=== PATIENT | female | born 1940 | race Caucasian/White ===

== ENCOUNTER → 2016-08-07 | Outpatient (CLI) | payer OTHER | LOC: FIMAGING 09:12 | PROVIDERS: ATTEND Internal Medicine Hematology & Oncology | DX: Z12.39 Encounter for other screening for malignant neoplasm of breast (principal); N64.4 Mastodynia; Z85.3 Personal history of malignant neoplasm of breast | CPT/HCPCS: 76641; G0204 ==

== ENCOUNTER 2017-02-13 10:03 | Inpatient (IN) | payer OTHER ==
--- NOTE | 2017-02-13 10:15 | EDPHY ---
H & P Stated Complaint: Feels weak after taking 2 extra BP meds Time Seen by Provider: 02/13/17 10:15 HPI/ROS: CHIEF COMPLAINT: Generalized weakness HISTORY OF PRESENT ILLNESS: The patient presents to the ED with 4 days of generalized weakness and lethargy. The patient reportedly developed the symptoms after taking additional blood pressure medications for a transiently elevated systolic blood pressure. The patient reportedly has been off of her blood pressure medications for the past 4 days. She has been unable to get off her couch secondary to weakness. She has continued to make a small amount of urine. She denies fever, cough or congestion. She denies dysuria. REVIEW OF SYSTEMS: A comprehensive 10 point review of systems is otherwise negative aside from elements mentioned in the history of present illness. Source: Patient - Personal History Current Tetanus Diphtheria and Acellular Pertussis (TDAP): Yes Tetanus Vaccine Date: < 10 YEARS - Medical/Surgical History Hx Asthma: No Hx Chronic Respiratory Disease: No Hx Diabetes: No Hx Cardiac Disease: No Hx Renal Disease: Yes Hx Cirrhosis: No Hx Alcoholism: No Hx HIV/AIDS: No Hx Splenectomy or Spleen Trauma: No Other PMH: DEPRESSION, HTN, HYPOTHYROID - Social History Smoking Status: Former smoker - Physical Exam Exam: General Appearance: Alert, no distress Eyes: Pupils equal and round no pallor or injection ENT, Mouth: Dry mucous membranes Respiratory: There are no retractions, lungs are clear to auscultation Cardiovascular: Regular rate and rhythm Gastrointestinal: Abdomen is soft and nontender, no masses, bowel sounds normal Neurological: A&O, normal motor function, normal sensory exam, normal cranial nerves Skin: Warm and dry, no rashes Musculoskeletal: Neck is supple nontender Extremities: symmetrical, full range of motion Constitutional: Initial Vital Signs Temperature (C) 36.6 C 02/13/17 10:04 Heart Rate 68 02/13/17 10:04 Respiratory Rate 16 02/13/17 10:04 Blood Pressure 75/50 L 02/13/17 10:04 O2 Sat (%) 94 02/13/17 10:04 O2 Delivery Mode Room Air Allergies/Adverse Reactions: alprazolam [From Xanax] Allergy (Severe, Verified 02/13/17 10:04) SYNCOPE/HYPOTENSION doxycycline [Doxycycline] Allergy (Mild, Verified 02/13/17 10:04) Rash erythromycin base [Erythromycin Base] Allergy (Mild, Verified 02/13/17 10:04) NAUSEA Penicillins Allergy (Mild, Verified 02/13/17 10:04) Rash Sulfa (Sulfonamide Antibiotics) Allergy (Mild, Verified 02/13/17 10:04) Vomiting sulfamethoxazole [From Septra] Allergy (Mild, Verified 02/13/17 10:04) Vomiting trimethoprim [From Septra] Allergy (Mild, Verified 02/13/17 10:04) NAUSEA Wheat Containing *RETIRED-02/03/12 [Wheat Containing Prod] Allergy (Mild, Verified 02/13/17 10:04) Rash cephalexin monohydrate [From Keflex] Allergy (Unknown, Verified 02/13/17 10:04) Unknown chloroquine [Chloroquine] Allergy (Unknown, Verified 02/13/17 10:04) Unknown oxycodone HCl [From Percocet] Allergy (Unknown, Verified 02/13/17 10:04) NAUSEA propoxyphene napsylate [From Darvocet-N 100] Allergy (Unknown, Verified 10:04) Unknown Home Medications: Medication Instructions Recorded Aspirin [Aspirin 325 mg (*)] 650 mg PO DAILY PRN 02/13/17 DULoxetine [Cymbalta 30 MG (*)] 30 mg PO DAILY 02/13/17 Herbals/Supplements -Info Only 1 ea PO DAILY 02/13/17 Levothyroxine [Synthroid 75 mcg 75 mcg PO DAILY06 02/13/17 (*)] Liothyronine Sodium [Cytomel 25 25 mcg PO DAILY 02/13/17 mcg (*)] Valsartan [Diovan (*)] 80 mg PO DAILY 02/13/17 buPROPion SR [Wellbutrin 150mg SR 150 mg PO DAILY 02/13/17 (*)] Medical Decision Making - Diagnostics EKG Interpretation: EKG: Complete interpretation has been separately recorded in the [email or web address] archive. Summary impression: Sinus rhythm, PACs, nonspecific ST T wave changes noted ED Course/Re-evaluation: The patient presents to the ED with transient hypotension, global weakness and acute renal failure. The patient's symptoms began after taking her antihypertensive medications at doses greater than typically prescribed. This precipitated a several day episode of generalized weakness. The patient does have a history of chronic renal failure. She is not on dialysis. The patient denies any history of fever, cough, congestion or acute diarrhea. The patient was noted to be hypotensive upon arrival. She had an IV established. She received 2 L of normal saline. Her blood pressure rapidly improved. The patient is noted to be afebrile. Her laboratory studies do demonstrate acute on chronic renal failure with a creatinine of 2.9. The patient's EKG demonstrates no evidence of ischemia or arrhythmia. She was placed on a athletic monitor. The patient will require admission to the hospital for further evaluation of her dehydration and acute renal failure. The patient has no evidence of fever or acute infection in the emergency department. Differential Diagnosis: Differential diagnosis considered includes acute renal failure, hyperkalemia, metabolic abnormality, dehydration, arrhythmia - Data Points Laboratory Results: Laboratory Results 02/13/17 10:30 02/13/17 10:30 02/13/17 02/13/17 02/13/17 10:30 10:30 10:30 WBC 14.52 10^3/uL H 10^3/uL (3.80-9.50) RBC 4.92 10^6/uL 10^6/uL (4.18-5.33) Hgb 15.0 g/dL g/dL (12.6-16.3) POC Hgb 17.0 gm/dL H gm/dL (12.6-16.3) Hct 45.0 % % (38.0-47.0) POC Hct 50 % H % (38-47) MCV 91.5 fL fL (81.5-99.8) MCH 30.5 pg pg (27.9-34.1) MCHC 33.3 g/dL g/dL (32.4-36.7) RDW 12.8 % % (11.5-15.2) Plt Count 280 10^3/uL 10^3/uL (150-400) MPV 9.3 fL fL (8.7-11.7) Neut % (Auto) 80.0 % H % (39.3-74.2) Lymph % (Auto) 11.9 % L % (15.0-45.0) [place] % (Auto) 6.2 % % (4.5-13.0) Eos % (Auto) 1.2 % % (0.6-7.6) Baso % (Auto) 0.3 % % (0.3-1.7) Nucleat RBC Rel Count 0.0 % % (0.0-0.2) Absolute Neuts (auto) 11.61 10^3/uL H 10^3/uL (1.70-6.50) Absolute Lymphs (auto) 1.73 10^3/uL 10^3/uL (1.00-3.00) Absolute Monos (auto) 0.90 10^3/uL H 10^3/uL (0.30-0.80) Absolute Eos (auto) 0.18 10^3/uL 10^3/uL (0.03-0.40) Absolute Basos (auto) 0.04 10^3/uL 10^3/uL (0.02-0.10) Absolute Nucleated RBC 0.00 10^3/uL 10^3/uL (0-0.01) Immature Gran % 0.4 % % (0.0-1.1) Immature Gran # 0.06 10^3/uL 10^3/uL (0.00-0.10) POC Sodium 136 mEq/L mEq/L (134-144) Sodium 135 mEq/L mEq/L (134-144) POC Potassium 3.6 mEq/L mEq/L (3.3-5.0) Potassium 3.9 mEq/L mEq/L (3.5-5.2) POC Chloride 98 mEq/L mEq/L (97-110) Chloride 97 mEq/L mEq/L (97-110) Carbon Dioxide 20 mEq/l L mEq/l (22-31) Anion Gap 18 mEq/L H mEq/L (8-16) POC BUN 40 mg/dL H mg/dL (7-23) BUN 38 mg/dL H mg/dL (7-23) Creatinine 2.7 mg/dL H mg/dL (0.6-1.0) POC Creatinine 2.9 mg/dL H mg/dL (0.6-1.0) Estimated GFR 17 Glucose 127 mg/dL H mg/dL (70-100) POC Glucose 130 mg/dL H mg/dL (70-100) Calcium 9.1 mg/dL mg/dL (8.5-10.4) Medications Given: Discontinued Medications Sodium Chloride (Ns) 1,000 mls @ 0 mls/hr IV EDNOW ONE; Wide Open PRN Reason: Protocol Stop: 02/13/17 10:22 Last Admin: 02/13/17 10:29 Dose: 1,000 mls Sodium Chloride (Ns) 1,000 mls @ 0 mls/hr IV EDNOW ONE; Wide Open PRN Reason: Protocol Stop: 02/13/17 10:59 Last Admin: 02/13/17 11:43 Dose: 1,000 mls Point of Care Test Results: 02/13/17 10:30 POC Sodium 136 POC Potassium 3.6 POC Chloride 98 POC BUN 40 H POC Creatinine 2.9 H POC Glucose 130 H Departure - [facility] Clinical Impression: Acute renal failure, Dehydration, Hypotension Condition: Fair
[2017-02-13] MEDS ORDERED: NS 1,000 ML IV ONE ×2 (10:21→10:58)
[2017-02-13 11:10] LABS: ANION GAP 18 mEq/L (8-16); CALCIUM 9.1 mg/dL (8.5-10.4); CARBON DIOXIDE 20 mEq/l (22-31); CHLORIDE 97 mEq/L (97-110); CREATININE 2.7 mg/dL (0.6-1.0); GLOMERULAR FILTRATION RATE 17; GLUCOSE 127 mg/dL (70-100); POTASSIUM 3.9 mEq/L (3.5-5.2); SODIUM 135 mEq/L (134-144)
[2017-02-13 11:11] LABS: % IMMATURE GRANULYOCYTES 0.4 % (0.0-1.1); ABSOLUTE IMMATURE GRANULOCYTES 0.06 10^3/uL (0.00-0.10); ADD DIFF? NO; ADD MORPH? NO; ADD SCAN? NO; ATYPICAL LYMPHOCYTE FLAG 10 (0-99); FRAGMENT RBC FLAG 0 (0-99); LEFT SHIFT FLG 0 (0-99); LIPEMIA HEMOLYSIS FLAG 80 (0-99); MEAN CELL HEMOGLOBIN 30.5 pg (27.9-34.1); MEAN CELL HEMOGLOBIN CONCENTR. 33.3 g/dL (32.4-36.7); MEAN CELL VOLUME 91.5 fL (81.5-99.8); MEAN PLATELET VOLUME 9.3 fL (8.7-11.7); PLATELET CLUMPS FLAG 20 (0-99); PLATELET COUNT 280 10^3/uL (150-400); RED BLOOD CELL COUNT 4.92 10^6/uL (4.18-5.33); RED CELL DISTRIBUTION WIDTH 12.8 % (11.5-15.2)
--- NOTE | 2017-02-13 11:32 | CPEKG ---
Heart Rate: 86 RR Interval: 698 P-R Interval: 152 QRSD Interval: 70 QT Interval: 376 QTC Interval: 450 P [place]: 25 QRS [place]: -7 T Wave [place]: 108 EKG Severity - ABNORMAL ECG - EKG Impression: SINUS RHYTHM EKG Impression: MULTIPLE ATRIAL PREMATURE COMPLEXES EKG Impression: NONSPECIFIC T ABNORMALITIES, LATERAL LEADS Electronically Signed By: Ashish Langston 13-Feb-2017 13:55:37
[2017-02-13] MEDS ORDERED: ACETAMINOPHEN 325 MG TAB PO PRN (12:09)
[2017-02-13] MEDS ORDERED: ONDANSETRON DISINTEGRATING 4 MG TAB PO PRN (12:09)
[2017-02-13] MEDS ORDERED: ONDANSETRON 4 MG/2 ML VIAL IVP PRN (12:09)
--- NOTE | 2017-02-13 14:20 | GHP ---
[f rep st] HISTORY AND PHYSICAL DATE OF ADMISSION: 02/13/2017 CHIEF COMPLAINT: Hypotension, dizziness. HISTORY OF PRESENT ILLNESS: A 76-year-old female with history of hypertension, CKD, breast cancer pr esenting with generalized weakness. Symptoms started after taking too many blood pressure medication s on Friday. She has been transitioned to telmisartan and took a dose of that, but blood pressure wa s still elevated, so she took an additional dose plus her old valsartan. Since that time, she has bullard d dizziness and weakness. She has had decreased p.o. intake. She started having diarrhea a couple d ays ago, 5 times a day. Denies recent antibiotics. No fevers, chills, or sweats. Has had some naus ea and dry heaves. Had a headache up until Friday. She reports chills and sweats. She is followed by Dr. Gonzalez outpatient. REVIEW OF SYSTEMS: I completed a 10-point review of systems, negative except as noted in HPI. PAST MEDICAL HISTORY: 1. Hypertension. 2. CKD. Creatinine baseline 1.7-2. 3. Breast cancer. 4. Hypothyroidism. 5. Depression. PAST SURGICAL HISTORY: Back surgery, breast cancer/lumpectomy. SOCIAL HISTORY: Lives in [place], has 2 dogs. Occasional alcohol. No tobacco or illicits. FAMILY HISTORY: Maternal grandmother with breast cancer. ALLERGIES: See [facility]osh[facility] for list. HOME MEDICATIONS: 1. Tylenol. 2. Wellbutrin. 3. Cymbalta. 4. Cytomel 25. 5. Aspirin 650 mg daily p.r.n. 6. Valsartan 80 mg daily. 7. Levothyroxine 75 mcg daily. 8. Cymbalta. PHYSICAL EXAMINATION: VITAL SIGNS: Temperature 36.7, blood pressure 75/50 on admission, now 90/46, heart rate in the 60s, respirations 18, 89% on room air. GENERAL: The patient lying in bed, no acute distress. HEENT: PERRLA. EOMI. Very dry mucous membranes. CV: Regular rate and rhythm. No murmur s, gallops, rubs. LUNGS: Clear. No crackles or wheezing. ABDOMEN: Soft, nontender, nondistended. Positive bowel sounds. : No suprapubic tenderness. MUSCULOSKELETAL: 5/5 upper and lower extremi ty strength. SKIN: Poor skin turgor. No rash or ulceration. NEUROLOGIC: 2 through 12 intact. PSYCH: Alert and oriented x3. LABORATORY DATA: WBC 14, hemoglobin 15, hematocrit 48, platelets 280. Sodium 135, potassium 3.9, ch loride 97, carbon dioxide 20, anion gap 18, BUN is 38, creatinine was 2.9, after repeat 2.7. Glucose 127, calcium 9.1. EKG was personally reviewed by me. Normal sinus rhythm with PACs. ASSESSMENT AND PLAN: 1. Hypotension, multifactorial, with taking too many blood pressure medications with subsequent diar natacha and decreased p.o. intake. It has improved with IV fluids. We will continue this. EKG is leland schemic. We will check a troponin. 2. Acute kidney injury on chronic kidney disease, secondary to angiotensin receptor blockers plus hy potension. Check urine lytes. 3. Hypertension. Hold antihypertensives with hypotension. 4. Hypothyroid. Continue home medications. 5. History of breast cancer, status post lumpectomy. 6. Hypothyroidism. Resume Cytomel. 7. Depression. Home medications. 8. Diet: Regular. 9. Deep venous thrombosis prophylaxis, subcu heparin. DISPOSITION: Patient warrants observation admission given acute hypotension and KAILYN requiring IV fluids and additi onal lab testing. /[id number]/MODL
[2017-02-13] MEDS: HEPARIN 5,000 UNIT/0.5 ML SYR SC SCH ×2 (16:17→22:34)
[2017-02-13 16:28] LABS: COLOR YELLOW; LEUKOCYTE ESTERASE,URINE NEGATIVE (NEGATIVE); NITRITE,URINE NEGATIVE (NEGATIVE)
[2017-02-13 16:37] LABS: MUCUS TRACE /lpf (NONE-1+); RBC,URINE 25-50 /hpf (0-3)
[2017-02-13] MEDS ORDERED: PANTOPRAZOLE SODIUM 40 MG TAB PO ONE (19:57)
[2017-02-13] MEDS: PANTOPRAZOLE SODIUM 40 MG TAB PO SCH (20:19)
[2017-02-14] MEDS: NS 1,000 ML IV SCH (00:56)
[2017-02-14 05:30] LABS: HEMATOCRIT 34.3 % (38.0-47.0); HEMOGLOBIN 11.2 g/dL (12.6-16.3); MEAN CELL HEMOGLOBIN 30.2 pg (27.9-34.1); MEAN CELL HEMOGLOBIN CONCENTR. 32.7 g/dL (32.4-36.7); MEAN CELL VOLUME 92.5 fL (81.5-99.8); RED BLOOD CELL COUNT 3.71 10^6/uL (4.18-5.33); RED CELL DISTRIBUTION WIDTH 12.8 % (11.5-15.2)
[2017-02-14] MEDS: LEVOTHYROXINE 75 MCG TAB PO SCH (05:39)
[2017-02-14] MEDS: HEPARIN 5,000 UNIT/0.5 ML SYR SC SCH ×3 (05:39→21:16)
[2017-02-14 05:44] LABS: ANION GAP 12 mEq/L (8-16); CALCIUM 7.9 mg/dL (8.5-10.4); CARBON DIOXIDE 18 mEq/l (22-31); CHLORIDE 108 mEq/L (97-110); CREATININE 1.8 mg/dL (0.6-1.0); GLOMERULAR FILTRATION RATE 28; GLUCOSE 90 mg/dL (70-100); POTASSIUM 4.3 mEq/L (3.5-5.2); SODIUM 138 mEq/L (134-144)
[2017-02-14] MEDS: LIOTHYRONINE SODIUM 25 MCG TAB PO SCH (08:13)
[2017-02-14] MEDS: PANTOPRAZOLE SODIUM 40 MG TAB PO SCH ×2 (08:15→21:16)
[2017-02-14] MEDS: DULoxetine 30 MG CAP PO SCH (08:15)
[2017-02-14] MEDS: buPROPion SR 150 MG TAB PO SCH (08:15)
[2017-02-14] MEDS ORDERED: Herbals/Supplements -Info Only PO SCH (09:00)
--- NOTE | 2017-02-14 09:15 | HOSPPROG ---
Hospitalist Progress Note Assessment/Plan: #Hypotension: due to BP meds, N/v/d. Resolved with IVFs #KAILYN on CKD: urine lytes c/w pre-renal. #HTN: resume BP meds next week with PCP #Diarrhea: negative GI panel #Deconditioning: stumbled on stairs with PT. At risk for fall and subsequent injury. Monitor overnight and cont PT #Diet: regular #DVT ppx: SQH #Disp: warrants inpatient admission with high risk of fall and subsequent injury. Cont PT. Can likely DC tomorrow if more stable Subjective: "unsteady on feet" Objective: Vital Signs Temp Pulse Resp BP Pulse Ox 37.1 C 89 18 112/72 93 02/14/17 04:00 02/14/17 08:09 02/14/17 08:09 02/14/17 08:09 02/14/17 08:09 Laboratory Results 02/14/17 05:02 02/14/17 05:02 02/13/17 02/14/17 02/15/17 05:59 05:59 05:59 Intake Total 2388 Output Total 250 Balance 2138 - Physical Exam Constitutional: other (tired-appearing) Ears, Nose, Mouth, Throat: dry mucous membranes Cardiovascular: regular rate and rhythym, no murmur, rub, or gallop Respiratory: no respiratory distress, no rales or rhonchi Gastrointestinal: normoactive bowel sounds, soft, non-tender abdomen, No no palpable masses, No tenderness Skin: warm Musculoskeletal: generalized weakness Neurologic: AAOx3, CN II-XII Intact Psychiatric: interacting appropriately, flat affect ICD10 Worksheet Patient Problems: Problems Problem Status Onset Acute renal failure Acute Dehydration Acute Hypotension Acute Hypothyroidism Active Pneumonia Active
--- NOTE | 2017-02-14 17:15 | ASMTCMCOM ---
CM Note CM Note Notes: Met with patient regarding discharge poc. Discussed therapy's recommendation for home with home health care, patient in agreement. Discussed different home care choices, patient would like [facility] (would like to stay within the system). Left voicemail for [facility]'s intake line regarding referral. Confirmed address and phone #. D/C date unclear at this time. Case Management will continue to follow. Date Signed: 02/14/2017 05:14 PM Electronically Signed By:Saadia White RN
[2017-02-15] MEDS: NS 1,000 ML IV SCH (01:47)
[2017-02-15 05:14] VITALS: O2SAT 92
[2017-02-15] MEDS: HEPARIN 5,000 UNIT/0.5 ML SYR SC SCH (05:38)
[2017-02-15] MEDS: LEVOTHYROXINE 75 MCG TAB PO SCH (05:38)
[2017-02-15 06:13] LABS: ANION GAP 10 mEq/L (8-16); CALCIUM 8.6 mg/dL (8.5-10.4); CARBON DIOXIDE 19 mEq/l (22-31); CHLORIDE 109 mEq/L (97-110); CREATININE 1.5 mg/dL (0.6-1.0); GLOMERULAR FILTRATION RATE 34; GLUCOSE 99 mg/dL (70-100); POTASSIUM 4.1 mEq/L (3.5-5.2); SODIUM 138 mEq/L (134-144)
[2017-02-15 08:17] VITALS: BP 122/88; PULSE 106; RESP 16; TEMP 98.5
--- NOTE | 2017-02-15 08:41 | HOSPPROG ---
Hospitalist Progress Note Assessment/Plan: #Hypotension: due to BP meds, N/v/d. Resolved with IVFs #KAILYN on CKD: urine lytes c/w pre-renal. #HTN: resume BP meds next week with PCP #Diarrhea: negative GI panel #Deconditioning: stumbled on stairs with PT. Better balance today. Using cane. Decline home PT #Diet: regular #DVT ppx: SQH #Disp: DC today Subjective: feels much steadier on her feet today. No dizziness or lightheadeness Objective: Vital Signs Temp Pulse Resp BP Pulse Ox 36.9 C 106 H 16 122/88 H 92 02/15/17 08:00 02/15/17 08:00 02/15/17 08:00 02/15/17 08:00 02/15/17 08:00 Laboratory Results 02/15/17 05:14 02/14/17 02/15/17 02/16/17 05:59 05:59 05:59 Intake Total 1999 Balance 1999 - Physical Exam Constitutional: no apparent distress Eyes: PERRL Ears, Nose, Mouth, Throat: moist mucous membranes Cardiovascular: regular rate and rhythym, no murmur, rub, or gallop Respiratory: no respiratory distress, no rales or rhonchi, clear to auscultation Gastrointestinal: normoactive bowel sounds, soft, non-tender abdomen Skin: warm Musculoskeletal: full muscle strength Neurologic: AAOx3, CN II-XII Intact Psychiatric: interacting appropriately, No not encephalopathic ICD10 Worksheet Patient Problems: Problems Problem Status Onset Acute renal failure Acute Dehydration Acute Hypotension Acute Hypothyroidism Active Pneumonia Active
[2017-02-15] MEDS: PANTOPRAZOLE SODIUM 40 MG TAB PO SCH (09:48)
[2017-02-15] MEDS: buPROPion SR 150 MG TAB PO SCH (09:48)
[2017-02-15] MEDS: LIOTHYRONINE SODIUM 25 MCG TAB PO SCH (09:48)
[2017-02-15] MEDS: DULoxetine 30 MG CAP PO SCH (09:48)
--- NOTE | 2017-02-15 10:25 | GDS ---
[f rep st] DISCHARGE SUMMARY DISCHARGE DIAGNOSES: 1. Hypotension. 2. Dizziness. 3. Diarrhea. 4. Acute kidney injury on chronic kidney disease. 5. Hypertension. 6. Chronic kidney disease. Baseline creatinine 1.7 to 2. 7. History of breast cancer. 8. Hypothyroidism. 9. Depression. HISTORY OF PRESENT ILLNESS: A 76-year-old female with history of hypertension, CKD, breast cancer, presenting with generalized weakness. Symptoms started after taking too many blood pressure medications 4 days prior to admission. She had been transitioned to telmisartan and took a dose of that, but her blood pressure was still elevated, so she took an additional dose plus her old valsartan. Since that time, she has had dizziness and weakness. She did develop diarrhea and has had minimal p.o. intake. She denied recent antibiotic use. No fevers, chills, or sweats. Mild nausea and some dry heaves. She is followed by Dr. Gonzalez outpatient for kidney disease. HOSPITAL COURSE BY PROBLEM: 1. Hypotension: Multifactorial with too many blood pressure medications, diarrhea, and decreased p.o. intake. This resolved with IV fluids. 2. KAILYN on CKD: Creatinine was elevated to 2.7 on admission, again secondary to hypotension and dehydration. Urine lytes consistent with prerenal. This resolved nicely with IV fluids. 3. Hypertension: Patient's blood pressure now systolics 120s. I recommend that she hold her medications until following up with her PCP or Dr. Gonzalez next week. 4. Hypothyroidism: Continue levothyroxine. 5. Depression: Home medications. 6. Diarrhea: May be gastroenteritis versus medication reaction. GI panel was negative. DISPOSITION: Patient is stable for discharge. MEDICATION CHANGES: Stop valsartan. FOLLOWUP: 1. PCP. 2. Dr. Gonzalez. 3. Blood pressure check /[id number]/MODL MTDD
--- NOTE | 2017-02-15 10:57 | ASMTCMCOM ---
CM Note CM Note Notes: CM Discharge Note: Patient discharging home. CM spoke with patient about recommendation for home care; patient declined any form of home care, believes she is physically at her baseline and denies need for assistance with medication. She plans to follow up with Dr Gonzalez re: her cardiac mediacations on Friday. Provided patient with information on Meals on Wheels. Called taxi for patient per her request. Also, alerted HC director educational radio NATALYA Zuniga that patient did not want their services. Date Signed: 02/15/2017 10:56 AM Electronically Signed By:Mickie Pascal RN
== END 2017-02-15 11:39 | disposition home or self-care (01) | DRG 918 ==
LOC: F3E 13:21 → OBSVTOIN 02-14 15:09
PROVIDERS: ADMIT Internal Medicine; ATTEND Internal Medicine
DX: T46.4X1A Poisoning by angiotensin-converting-enzyme inhibitors, accidental (unintentional), initial encounter (principal); I95.2 Hypotension due to drugs; R19.7 Diarrhea, unspecified; E86.0 Dehydration; N17.9 Acute kidney failure, unspecified; N18.9 Chronic kidney disease, unspecified; I12.9 Hypertensive chronic kidney disease with stage 1 through stage 4 chronic kidney disease, or unspecified chronic kidney disease; E03.9 Hypothyroidism, unspecified; F32.9 Major depressive disorder, single episode, unspecified; Z85.3 Personal history of malignant neoplasm of breast
CPT/HCPCS: 82947-QW; 97161-GP; 97165-GO; G0378; G8978-GP-CI; G8979-GP-CH; G8987-GO-CI; G8988-GO-CI; G8989-GO-CI

== ENCOUNTER → 2017-03-14 | Outpatient (CLI) | payer OTHER | LOC: EDSTATUS 09:00 → FIMAGING 09:02 | PROVIDERS: ATTEND Family Medicine | DX: N85.8 Other specified noninflammatory disorders of uterus (principal); R19.7 Diarrhea, unspecified; R19.5 Other fecal abnormalities; D64.9 Anemia, unspecified; R10.9 Unspecified abdominal pain ==

== ENCOUNTER → 2017-03-18 | Outpatient (CLI) | payer OTHER | LOC: FIMAGING 08:00 | PROVIDERS: ATTEND Family Medicine | DX: K76.89 Other specified diseases of liver (principal); N28.1 Cyst of kidney, acquired ==

== ENCOUNTER → 2017-04-08 | Outpatient (CLI) | payer OTHER | LOC: FIMAGING 13:24 | PROVIDERS: ATTEND Obstetrics & Gynecology Gynecology | DX: N94.89 Other specified conditions associated with female genital organs and menstrual cycle (principal) ==

== ENCOUNTER 2017-05-05 07:58 | Day surgery (SDC) | payer OTHER ==
[2017-05-05] MEDS ORDERED: LIDOCAINE 1% 2 ML INJ ID PRN (08:35)
[2017-05-05] MEDS ORDERED: LR 1,000 ML IV ONE (08:35)
[2017-05-05 08:59] VITALS: PULSE 95
[2017-05-05] MEDS ORDERED: BUPIVACAINE 0.25% 30 ML SDV ONE (09:06)
[2017-05-05] MEDS ORDERED: MIDAZOLAM 2 MG/2 ML VIAL IVP ONE (09:59)
--- NOTE | 2017-05-05 10:03 | PDANEPAE ---
ANE Past Medical History - Cardiovascular History Hx Hypertension: Yes Hx Arrhythmias: No Hx Chest Pain: No Hx Coronary Artery / Peripheral Vascular Disease: No Hx CHF / Valvular Disease: No Hx Palpitations: No Cardiovascular History Comment: pcp monitors bp as well as special needs librarian dr christianson - Pulmonary History Hx COPD: No Hx Asthma/Reactive Airway Disease: No Hx Recent Upper Respiratory Infection: No Hx Oxygen in Use at Home: No Hx Sleep Apnea: No Sleep Apnea Screening Result - Last Documented: Positive Pulmonary History Comment: hx of bronchitis. hx pneumonia - Neurologic History Hx Cerebrovascular Accident: No Hx Seizures: No Hx Dementia: No Neurologic History Comment: spinal surgery 2009 - Endocrine History Hx Diabetes: No Obesity: yes, moderate Endocrine History Comment: hypothyroidism. 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 renal cyst 02/01/14. 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 reflux seeing dr wyatt for egd and colon 05/2014 - Other Health History Other Health History: [employer] - Chronic Pain History Chronic Pain: Yes (abd pain) - Surgical History Prior Surgeries: arthroscopic left shoulder surgery 2002 and 2003. beast surgery lumpectomy 2005. breast surgery x2. l5-s1 tlif [address] askew 06/15/2009 VALDO Review of Systems Review of Systems: - Exercise capacity METS (RN): 4 METS ANE Patient History - Allergies Allergies/Adverse Reactions: alprazolam [From Xanax] Allergy (Severe, Verified 02/13/17 10:04) SYNCOPE/HYPOTENSION doxycycline [Doxycycline] Allergy (Mild, Verified 02/13/17 10:04) Rash erythromycin base [Erythromycin Base] Allergy (Mild, Verified 02/13/17 10:04) NAUSEA Penicillins Allergy (Mild, Verified 02/13/17 10:04) Rash Sulfa (Sulfonamide Antibiotics) Allergy (Mild, Verified 02/13/17 10:04) Vomiting sulfamethoxazole [From Septra] Allergy (Mild, Verified 02/13/17 10:04) Vomiting trimethoprim [From Septra] Allergy (Mild, Verified 02/13/17 10:04) NAUSEA Wheat Containing *RETIRED-02/03/12 [Wheat Containing Prod] Allergy (Mild, Verified 02/13/17 10:04) Rash cephalexin monohydrate [From Keflex] Allergy (Unknown, Verified 02/13/17 10:04) Unknown chloroquine [Chloroquine] Allergy (Unknown, Verified 02/13/17 10:04) Unknown oxycodone HCl [From Percocet] Allergy (Unknown, Verified 02/13/17 10:04) NAUSEA propoxyphene napsylate [From Darvocet-N 100] Allergy (Unknown, Verified 10:04) Unknown - Home Medications Home medications: home medication list seen and reviewed Home Medications: Herbals/Supplements -Info Only 02/13/17 [Last Taken 04/05/17] Levothyroxine [Synthroid 75 mcg (*)] PO 02/13/17 [Last Taken 05/04/17] Liothyronine Sodium [Cytomel 25 mcg (*)] 02/13/17 [Last Taken 05/04/17] Valsartan 40 mg 05/05/17 [Last Taken 05/04/17] - NPO status NPO Since - Liquids (Date): 05/05/17 NPO Since - Liquids (Time): 07:10 NPO Since - Solids (Date): 05/04/17 NPO Since - Solids (Time): 23:00 - Anes Hx Anes Hx: awareness under anesthesia (During breast surgery) - Smoking Hx Smoking Status: Former smoker - Family Anes Hx Family Hx Anesthesia Complications: none ANE Labs/Vital Signs - Vital Signs Blood Pressure: 121/74 Heart Rate: 95 Respiratory Rate: 16 O2 Sat (%): 94 Height: 165.1 cm Weight: 81.647 kg ANE Physical Exam - Airway Mallampati Score: Class 2 Mouth exam: normal dental/mouth exam - Pulmonary Pulmonary: no respiratory distress, no rales or rhonchi, clear to auscultation - Cardiovascular Cardiovascular: regular rate and rhythym, no murmur, rub, or gallop - ASA Status ASA Status: II ANE Anesthesia Plan Anesthesia Plan: general endotracheal anesthesia
[2017-05-05] MEDS ORDERED: MIDAZOLAM 2 MG/2 ML VIAL ONE (10:15)
--- NOTE | 2017-05-05 10:27 | PDHPUP ---
History & Physical Update H&P update statement: This history and physical update is based on an assessment of the patient which was completed after admission or registration (within 24 hours), but prior to the surgery/procedure.
[2017-05-05] MEDS ORDERED: DEXAMETHASONE 4 MG/ML VIAL ONE ×2 (10:36)
[2017-05-05] MEDS ORDERED: LIDOCAINE 2% 5 ML SDV ONE (10:36)
[2017-05-05] MEDS ORDERED: PROPOFOL 200 MG/20 ML VIAL ONE (10:36)
[2017-05-05] MEDS ORDERED: KETOROLAC 30 MG/1 ML SDV ONE (10:36)
[2017-05-05] MEDS ORDERED: fentaNYL 250 MCG/5 ML INJ ONE (10:36)
[2017-05-05] MEDS ORDERED: ONDANSETRON 4 MG/2 ML VIAL ONE ×2 (10:36→13:05)
[2017-05-05] MEDS ORDERED: ROCURONIUM 50 MG/5 ML VIAL ONE (10:36)
[2017-05-05] MEDS ORDERED: SUGAMMADEX SODIUM 200 MG/2 ML VIAL IVP ONE (10:36)
[2017-05-05] MEDS ORDERED: PHENYLEPHRINE HCL 100 MCG/ML SYR ONE (10:56)
[2017-05-05] MEDS ORDERED: NALOXONE HCL 0.4 MG/ML INJ IVP PRN ×2 (11:07→11:17)
[2017-05-05] MEDS ORDERED: MEPERIDINE 25 MG/ML SYR IVP PRN (11:07)
[2017-05-05] MEDS ORDERED: PROMETHAZINE HCL 25 MG/ML INJ IVP PRN (11:07)
[2017-05-05] MEDS ORDERED: ONDANSETRON 4 MG/2 ML VIAL IVP PRN (11:07)
[2017-05-05] MEDS ORDERED: ACETAMINOPHEN 500 MG TAB PO PRN (11:07)
[2017-05-05] MEDS ORDERED: LR 500 ML IV PRN (11:17)
[2017-05-05] MEDS ORDERED: HYDROCODONE/APAP 5/325 TAB PO PRN (11:17)
--- NOTE | 2017-05-05 12:12 | POSTANESTH ---
Post Anesthetic Evaluation Cardiovascular Status: Normal, Stable, Similar to Pre-Op Cond Respiratory Status: Normal, Stable, Similar to Pre-op Cond. Level of Consciousness/Mental Status: Can Participate in Eval, Alert and Oriented Pain Control: Adequate, Prn Tx Ordered (Has some urethral irritation from Ruiz cath) Nausea/Vomiting Control: Adequate, Prn Tx Ordered Complications Possibly Related to Anesthesia: None Noted
--- NOTE | 2017-05-05 12:13 | POSTOPPROG ---
Post Op Note Date of Operation: 05/05/17 Surgeon: Carolin Schuster Anesthesiologist: Flaca Burt Anesthesia: GET(General Endotracheal) Pre-op Diagnosis: pelvic mass Post-op Diagnosis: right ovarian mass Indication: pelvic pain and mass Procedure: L/s removal of pelvic mass,right ovary and fallopian tube Findings: right oavian mass Inf/Abcess present in the surg proc area at time of surgery?: No EBL: Minimal
[2017-05-05] MEDS ORDERED: fentaNYL 100 MCG/2 ML INJ ONE ×2 (12:15→12:34)
[2017-05-05] MEDS: fentaNYL 100 MCG/2 ML INJ IVP PRN ×3 (12:18→12:36)
[2017-05-05 12:51] VITALS: RESP 16
[2017-05-05 13:17] VITALS: TEMP 97.7
[2017-05-05 13:26] VITALS: BP 124/69; O2SAT 93
[2017-05-05] MEDS ORDERED: HYDROCODONE/APAP 5/325 TAB ONE (13:31)
--- NOTE | 2017-05-05 22:23 | GOP ---
[f rep st] OPERATIVE REPORT DATE OF OPERATION: 05/05/2017 SURGEON: Carolin Schuster MD ANESTHESIA: General endotracheal. ANESTHESIOLOGIST: Alfonso Silverio MD. PREOPERATIVE DIAGNOSIS: 1. Symptomatic pelvic mass. 2. Stage IV kidney disease. 3. Essential hypertension. POSTOPERATIVE DIAGNOSIS: 1. Symptomatic pelvic mass. 2. Stage IV kidney disease. 3. Essential hypertension. PROCEDURE PERFORMED: Laparoscopic drainage and removal of large pelvic mass, likely right ovarian ne oplasm/cyst. FINDINGS: Right ovarian mass with normal appearing fallopian tubes. Normal left ovary and normal ut erus and some right upper quadrant abdominal adhesions. Preop consult with Dr. Kayden Gonzalez for he r stage IV kidney disease and patient has been cleared to go. DESCRIPTION OF PROCEDURE: With informed consent signed, patient taken to the operating room and [facility] ed under general anesthesia without complication. Placed in the low dorsal lithotomy position, prepp ed and draped in the usual sterile fashion. Ruiz catheter placed. Tenaculum placed on the anterior lip of the cervix for traction and Melara cannula placed into the cervical os. Attention turned to t he abdomen and incision sites were injected with 0.25% Marcaine at the inferior aspect of the umbilic us and the superior aspect of the pubic symphysis and the left lower quadrant. Incision was made wit h a scalpel in the inferior aspect of the umbilicus. A Veress needle placed with ease into the abdom inal cavity and 5 mm trocar placed and then laparoscope followed, indicating appropriate placement an d no entrance injury. Of note before the trocar was placed, abdomen was insufflated with CO2 gas. Next, the suprapubic incision was made and a 5 mm trocar placed here and then findings as noted above . A left lower quadrant incision made with a 10-12 mm trocar placed. The cyst was identified and a laparoscopic needle placed with ease into the cyst and approximately 400 cc of fluid removed. This w as clear in nature. Once it was felt that about 90% of the fluid was removed, the Endo-ASAEL was place d across the utero-ovarian ligament clamped, cut, and staple ligated and then the same was done acros s the infundibulopelvic ligament. Again, the ureter was noted to be peristalsing below and then the Endo-ASAEL clamped, cut, and staple ligated and then the 3rd was placed across the residual broad ligam ent. Hemostasis was noted at these sites and then the cyst was removed from the left lower quadrant incision site. The fluid was clear from the cyst and there probably was some leakage from the Endoba g. However, the entire specimen was removed from the left lower quadrant incision and handed off for specimen. The incision sites were closed with 4-0 Vicryl and the deep fascial stitch was placed, ta cking the fascia back together in the left lower quadrant incision. The patient was placed in the ang pine position, awakened in the operating room, taken to recovery room in stable condition, tolerated the procedure well. INDICATIONS FOR PROCEDURE: Patient is a 76-year-old referred by Dr. Leonela White when patient was admitted recently for significant dehydration and not feeling well. Abdominal and pelvic ultrasound showed 11 cm pelvic cyst of unknown origin. It was recommended that she consider CT versus MRI for f urther evaluation. 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 Because the patient has had significan t pelvic pain, she desires surgical Removal. COMPLICATIONS: None. /[id number]/MODL
== END 2017-05-05 13:59 | disposition home or self-care (01) ==
LOC: FSGY 07:58
PROVIDERS: ATTEND Obstetrics & Gynecology Gynecology
PROC: 0UB04ZX Excision of Right Ovary, Percutaneous Endoscopic Approach, Diagnostic (ICD-10-PCS; principal; 2017-05-05 10:30)
DX: N83.201 Unspecified ovarian cyst, right side (principal); N83.8 Other noninflammatory disorders of ovary, fallopian tube and broad ligament; I12.9 Hypertensive chronic kidney disease with stage 1 through stage 4 chronic kidney disease, or unspecified chronic kidney disease; N18.4 Chronic kidney disease, stage 4 (severe); Z85.3 Personal history of malignant neoplasm of breast; E03.9 Hypothyroidism, unspecified; E78.5 Hyperlipidemia, unspecified; G47.33 Obstructive sleep apnea (adult) (pediatric); N25.81 Secondary hyperparathyroidism of renal origin; Z92.3 Personal history of irradiation
CPT/HCPCS: J1100; J1885; J2250; J2370; J2405; J2704; J3010

== ENCOUNTER → 2018-11-12 | Outpatient (CLI) | payer OTHER | LOC: FIMAGING 08:08 ==